=== PATIENT | female | born 2000 | race Two or more races ===

== ENCOUNTER 2022-12-23 21:40 | Emergency (ER) | payer MEDICAID ==
[~2022-12-23] VITALS: Ht 160 cm; Wt 79.0 kg
[2022-12-23 21:51] VITALS: TEMP 99.4
[2022-12-23 22:15] VITALS: BP 128/71; PULSE 100; RESP 17
[2022-12-23] MEDS ORDERED: AMOX500C2 PO (22:34)
[2022-12-23] MEDS ORDERED: IBUP-1492 PO (22:34)
[2022-12-23] MEDS ORDERED: CIPOTIC AS (22:34)
[2022-12-23] MEDS ORDERED: HYDROCODONE/ACETAMINOPHEN 5-325 MG TABLET PO ONE (22:45)
== END 2022-12-23 23:16 | disposition home or self-care (01) ==
LOC: EMS 21:43
DX: H60.92 Unspecified otitis externa, left ear (principal); H66.92 Otitis media, unspecified, left ear
CPT/HCPCS: 99283